=== PATIENT | male | born 1955 | race Hispanic/Latino ===

== ENCOUNTER 2018-11-28 20:26 | Emergency (ER) | payer BC ==
--- NOTE | 2018-11-28 20:57 | RAD ---
Exam: Left knee 4 views: HISTORY: Injury from a fall yesterday with knee pain FINDINGS: Total knee arthroplasty changes with moderate size knee joint effusion. No periprosthetic fracture. N o dislocation. IMPRESSION: Total knee arthroplasty changes without fracture. Moderate to large joint effusion
== END 2018-11-28 21:49 | disposition home or self-care (01) ==
LOC: ERS 20:26
DX: S83.92XA Sprain of unspecified site of left knee, initial encounter (principal); W05.0XXA Fall from non-moving wheelchair, initial encounter